=== PATIENT | female | born 1985 | race Caucasian/White ===

== ENCOUNTER 2017-11-20 06:26 | Emergency (ER) | payer OTHER ==
[~2017-11-20] VITALS: Ht 154.9 cm; Wt 100.2 kg
[2017-11-20 06:43] VITALS: Ht 154.9 cm; Wt 100.2 kg
[2017-11-20 08:37] VITALS: BP 102/76
== END 2017-11-20 08:37 | disposition home or self-care (01) ==
LOC: ED 06:26
DX: J20.9 Acute bronchitis, unspecified (principal); J45.901 Unspecified asthma with (acute) exacerbation

== ENCOUNTER 2018-12-02 07:39 | Emergency (ER) | payer OTHER ==
[~2018-12-02] VITALS: Ht 154.9 cm; Wt 106.1 kg
[2018-12-02 07:46] VITALS: Ht 154.9 cm; Wt 106.1 kg
[2018-12-02 08:40] VITALS: BP 142/95
== END 2018-12-02 08:40 | disposition home or self-care (01) ==
LOC: ED 07:39
DX: B34.9 Viral infection, unspecified (principal); J45.909 Unspecified asthma, uncomplicated; Z88.0 Allergy status to penicillin

== ENCOUNTER 2018-12-12 07:04 | Emergency (ER) | payer OTHER ==
[~2018-12-12] VITALS: Ht 154.9 cm; Wt 105.5 kg
[2018-12-12 07:13] VITALS: BP 127/85; Ht 154.9 cm; Wt 105.5 kg
== END 2018-12-12 09:00 | disposition left against medical advice (07) ==
LOC: ED 07:04
DX: Z53.21 Procedure and treatment not carried out due to patient leaving prior to being seen by health care provider (principal)

== ENCOUNTER 2019-03-30 16:35 | Emergency (ER) | payer OTHER ==
[~2019-03-30] VITALS: Ht 154.9 cm; Wt 105.7 kg
[2019-03-30 16:39] VITALS: Ht 154.9 cm; Wt 105.7 kg
[2019-03-30 17:40] LABS: BASOPHIL % 0.7 % (0-2); PLATELET COUNT 237 x10^3mcL (130-400); RED CELL DISTRIBUTION WIDTH 13.6 % (11.5-14.5)
[2019-03-30 17:50] LABS: CALCIUM 8.9 mg/dL (8.5-10.1); CARBON DIOXIDE 27.5 mmol/L (21-32); CHLORIDE SERUM 102 mmol/L (98-107); CREATININE SERUM 0.7 mg/dL (0.6-1.0); GFR1 > 60 mL/min; GLUCOSE SERUM 88 mg/dL (74-106); POTASSIUM SERUM 3.7 mmol/L (3.5-5.1); SODIUM SERUM 140 mmol/L (136-145)
[2019-03-30 17:56] LABS: ALBUMIN 3.7 g/dL (3.4-5.0); ALKALINE PHOSPHATASE 77 U/L (46-116); ALT/SGPT 52 U/L (14-59); AMYLASE 37 U/L (25-115); AST/SGOT 23 U/L (15-37); BILIRUBIN TOTAL 0.4 mg/dL (0.20-1.00); LIPASE 104 IU/L (73-393); TOTAL PROTEIN, SERUM 7.9 g/dL (6.4-8.2)
[2019-03-30 18:55] VITALS: BP 126/85
== END 2019-03-30 18:55 | disposition home or self-care (01) ==
LOC: ED 16:35
PROVIDERS: Emergency Medicine
DX: R10.13 Epigastric pain (principal); J45.909 Unspecified asthma, uncomplicated; R63.0 Anorexia; R11.10 Vomiting, unspecified; R19.7 Diarrhea, unspecified; Z88.0 Allergy status to penicillin
CPT/HCPCS: 36415; J1885

== ENCOUNTER 2019-07-11 05:59 | Emergency (ER) | payer OTHER ==
[~2019-07-11] VITALS: Ht 154.9 cm; Wt 101.2 kg
[2019-07-11 06:48] VITALS: BP 128/67
== END 2019-07-11 06:48 | disposition home or self-care (01) ==
LOC: ED 05:59
DX: J06.9 Acute upper respiratory infection, unspecified (principal); H10.31 Unspecified acute conjunctivitis, right eye; J45.909 Unspecified asthma, uncomplicated; Z88.0 Allergy status to penicillin

== ENCOUNTER 2019-07-31 22:33 | Emergency (ER) | payer OTHER | END 2019-07-31 23:01 | disposition left against medical advice (07) | LOC: ED 22:33 | DX: Z53.21 Procedure and treatment not carried out due to patient leaving prior to being seen by health care provider (principal) ==

== ENCOUNTER 2019-09-21 20:00 | Emergency (ER) | payer OTHER ==
[~2019-09-21] VITALS: Ht 154.9 cm; Wt 100.7 kg
[2019-09-21 20:03] VITALS: Ht 154.9 cm; Wt 100.7 kg
[2019-09-21 22:41] VITALS: BP 145/77
== END 2019-09-21 22:41 | disposition home or self-care (01) ==
LOC: ED 20:00
DX: J45.901 Unspecified asthma with (acute) exacerbation (principal); Z88.0 Allergy status to penicillin
CPT/HCPCS: 87804; J7613

== ENCOUNTER 2019-11-02 19:44 | Emergency (ER) | payer OTHER ==
[~2019-11-02] VITALS: Ht 157.5 cm; Wt 100.2 kg
[2019-11-02 19:50] VITALS: Ht 157.5 cm; Wt 100.2 kg
[2019-11-02 20:48] LABS: BASOPHIL % 0.4 % (0-2); PLATELET COUNT 242 x10^3mcL (130-400); RED CELL DISTRIBUTION WIDTH 13.1 % (11.5-14.5)
[2019-11-02 21:03] LABS: CALCIUM 8.9 mg/dL (8.5-10.1); CARBON DIOXIDE 28.9 mmol/L (21-32); CHLORIDE SERUM 104 mmol/L (98-107); CREATININE SERUM 0.8 mg/dL (0.6-1.0); GFR1 > 60 mL/min; GLUCOSE SERUM 76 mg/dL (74-106); POTASSIUM SERUM 3.7 mmol/L (3.5-5.1); SODIUM SERUM 139 mmol/L (136-145)
[2019-11-02 21:08] LABS: ALBUMIN 3.6 g/dL (3.4-5.0); ALKALINE PHOSPHATASE 74 U/L (46-116); ALT/SGPT 39 U/L (14-59); AST/SGOT 15 U/L (15-37); BILIRUBIN TOTAL 0.55 mg/dL (0.20-1.00); TOTAL PROTEIN, SERUM 7.6 g/dL (6.4-8.2)
[2019-11-02 22:16] VITALS: BP 119/71
== END 2019-11-02 22:16 | disposition home or self-care (01) ==
LOC: ED 19:44
PROVIDERS: Emergency Medicine
DX: R07.89 Other chest pain (principal); R11.0 Nausea; R05 Cough; Z88.0 Allergy status to penicillin
CPT/HCPCS: 36415; 85378; Q0092

== ENCOUNTER 2020-01-08 22:27 | Emergency (ER) | payer OTHER ==
[~2020-01-08] VITALS: Ht 157.5 cm; Wt 102.5 kg
[2020-01-08 22:33] VITALS: Ht 157.5 cm; Wt 102.5 kg
[2020-01-08 23:39] LABS: BASOPHIL % 0.5 % (0-2); PLATELET COUNT 223 x10^3mcL (130-400); RED CELL DISTRIBUTION WIDTH 12.8 % (11.5-14.5)
[2020-01-08 23:45] LABS: CALCIUM 8.5 mg/dL (8.5-10.1); CARBON DIOXIDE 27.3 mmol/L (21-32); CHLORIDE SERUM 104 mmol/L (98-107); CREATININE SERUM 0.6 mg/dL (0.6-1.0); GFR1 > 60 mL/min; GLUCOSE SERUM 89 mg/dL (74-106); POTASSIUM SERUM 3.7 mmol/L (3.5-5.1); SODIUM SERUM 140 mmol/L (136-145)
[2020-01-09 00:45] LABS: microscopic required? YES; urine erythrocyte NEGATIVE (NEGATIVE)
[2020-01-09 01:20] VITALS: BP 124/64
== END 2020-01-09 01:20 | disposition home or self-care (01) ==
LOC: ED 22:27
PROVIDERS: Emergency Medicine
DX: R20.2 Paresthesia of skin (principal); R42 Dizziness and giddiness; J45.909 Unspecified asthma, uncomplicated; Z88.0 Allergy status to penicillin
CPT/HCPCS: 36415

== ENCOUNTER 2020-01-19 01:59 | Emergency (ER) | payer OTHER ==
[~2020-01-19] VITALS: Ht 154.9 cm; Wt 102.1 kg
[2020-01-19 02:09] VITALS: BP 129/86; Ht 154.9 cm; Wt 102.1 kg
== END 2020-01-19 04:17 | disposition left against medical advice (07) ==
LOC: ED 01:59
DX: Z53.21 Procedure and treatment not carried out due to patient leaving prior to being seen by health care provider (principal)

== ENCOUNTER 2020-03-14 00:56 | Emergency (ER) | payer OTHER ==
[~2020-03-14] VITALS: Ht 154.9 cm; Wt 84.8 kg
[2020-03-14 01:03] VITALS: Ht 154.9 cm; Wt 84.8 kg
[2020-03-14 02:03] VITALS: BP 101/65
== END 2020-03-14 02:03 | disposition home or self-care (01) ==
LOC: ED 00:56
DX: M79.602 Pain in left arm (principal); R20.2 Paresthesia of skin; J45.909 Unspecified asthma, uncomplicated; Z88.0 Allergy status to penicillin

== ENCOUNTER 2020-05-12 00:30 | Emergency (ER) | payer OTHER ==
[~2020-05-12] VITALS: Ht 154.9 cm; Wt 99.3 kg
[2020-05-12 00:45] VITALS: Ht 154.9 cm; Wt 99.3 kg
[2020-05-12 03:02] LABS: BASOPHIL % 0.3 % (0-2); PLATELET COUNT 210 x10^3mcL (130-400); RED CELL DISTRIBUTION WIDTH 13.8 % (11.5-14.5)
[2020-05-12 05:45] LABS: CHLORIDE SERUM 103 mmol/L (98-107); POTASSIUM SERUM 3.9 mmol/L (3.5-5.1); SODIUM SERUM 139 mmol/L (136-145)
[2020-05-12 05:46] LABS: ALBUMIN 3.5 g/dL (3.4-5.0); ALT/SGPT 30 U/L (14-59); AST/SGOT 17 U/L (15-37); BILIRUBIN TOTAL 0.7 mg/dL (0.20-1.00); CALCIUM 8.3 mg/dL (8.5-10.1); CARBON DIOXIDE 24.2 mmol/L (21-32); CREATININE SERUM 0.8 mg/dL (0.6-1.0); GFR1 > 60 mL/min; GLUCOSE SERUM 86 mg/dL (74-106); TOTAL PROTEIN, SERUM 6.6 g/dL (6.4-8.2)
[2020-05-12 05:47] LABS: ALKALINE PHOSPHATASE 59 U/L (46-116)
[2020-05-12 06:17] VITALS: BP 112/55
== END 2020-05-12 06:17 | disposition home or self-care (01) ==
LOC: ED 00:30
PROVIDERS: Emergency Medicine
DX: R00.2 Palpitations (principal); R42 Dizziness and giddiness; R11.2 Nausea with vomiting, unspecified; J45.909 Unspecified asthma, uncomplicated; Z88.0 Allergy status to penicillin
CPT/HCPCS: Q0092

== ENCOUNTER 2020-08-26 22:25 | Emergency (ER) | payer OTHER ==
[~2020-08-26] VITALS: Ht 154.9 cm; Wt 106.6 kg
[2020-08-26 22:36] VITALS: Ht 154.9 cm; Wt 106.6 kg
[2020-08-27 00:39] LABS: BASOPHIL % 0.4 % (0-2); PLATELET COUNT 233 x10^3mcL (130-400); RED CELL DISTRIBUTION WIDTH 13.5 % (11.5-14.5)
[2020-08-27 02:54] VITALS: BP 106/59
== END 2020-08-27 02:55 | disposition home or self-care (01) ==
LOC: ED 22:25
DX: O20.9 Hemorrhage in early pregnancy, unspecified (principal); J45.909 Unspecified asthma, uncomplicated; F41.9 Anxiety disorder, unspecified; Z3A.01 Less than 8 weeks gestation of pregnancy; Z88.0 Allergy status to penicillin
CPT/HCPCS: Q0092

== ENCOUNTER 2020-11-03 16:32 | Emergency (ER) | payer OTHER ==
[~2020-11-03] VITALS: Ht 154.9 cm; Wt 106.6 kg
[2020-11-03 16:53] VITALS: BP 118/76; Ht 154.9 cm; Wt 106.6 kg
[2020-11-03 18:03] LABS: BASOPHIL % 0.2 % (0.2-1.3); PLATELET COUNT 217 x10^3mcL (179-408); RED CELL DISTRIBUTION WIDTH 13.1 % (12.3-17.7)
[2020-11-03 19:13] LABS: CALCIUM 9.1 mg/dL (8.5-10.1); CHLORIDE SERUM 104 mmol/L (98-107); CREATININE SERUM 0.8 mg/dL (0.6-1.0); GFR1 > 60 mL/min; GLUCOSE SERUM 90 mg/dL (74-106); SODIUM SERUM 140 mmol/L (136-145)
[2020-11-03 19:20] LABS: ALBUMIN 3.7 g/dL (3.4-5.0); ALKALINE PHOSPHATASE 75 U/L (46-116); ALT/SGPT 50 U/L (14-59); AST/SGOT 20 U/L (15-37); BILIRUBIN TOTAL 0.25 mg/dL (0.20-1.00); TOTAL PROTEIN, SERUM 7.7 g/dL (6.4-8.2)
== END 2020-11-03 20:00 | disposition home or self-care (01) ==
LOC: ED 16:32
PROVIDERS: Emergency Medicine
DX: R07.89 Other chest pain (principal); M79.10 Myalgia, unspecified site; J45.909 Unspecified asthma, uncomplicated; Z88.0 Allergy status to penicillin